=== PATIENT | male | born 1990 | race Caucasian/White ===

== ENCOUNTER 2018-12-19 14:15 | Emergency (ER) | payer BC, OTHER ==
[~2018-12-19] VITALS: Ht 180.3 cm; Wt 91.5 kg
[2018-12-19 14:33] VITALS: BP 143/98
--- NOTE | 2018-12-19 14:50 | NUR ---
Patient/Caregiver given discharge instructions and they have confirmed that they understand the instructions. Patient ambulatory with steady gait.
== END 2018-12-19 14:57 | disposition home or self-care (01) ==
LOC: ED 14:45
DX: B35.4 Tinea corporis (principal)
CPT/HCPCS: 99282

== ENCOUNTER 2020-01-01 17:00 | Emergency (ER) | payer OTHER, SELFPAY ==
[~2020-01-01] VITALS: Ht 177.8 cm; Wt 94.0 kg
--- NOTE | 2020-01-01 17:25 | NUR ---
PT TO ROOM 26 PER PEDIS. PT IS VERY NERVOUS AND C/O VARIOUS AILMENTS OVER A 1 MONTH TIME SPAN. AFTER MUCH DISCUSSION, PT IS HERE TO BE TESTED FOR THE WHITMAN VIRUS, HE IS AFRAID HE MIGHT GIVE IT TO SOMEONE. MD IN TO ASSESS PATIENT. ORDERS PLACED. COVID 19 TEST OBTAINED. PRODUCTION GRADER PERFORMED. XRAY AT BEDSIDE.
[2020-01-01 18:08] VITALS: BP 128/73
--- NOTE | 2020-01-01 18:10 | NUR ---
Patient/Caregiver given discharge instructions and they have confirmed that they understand the instructions. Patient ambulatory with steady gait.
== END 2020-01-01 18:10 | disposition home or self-care (01) ==
LOC: ED 18:00
DX: R06.00 Dyspnea, unspecified (principal); Z20.828 Contact with and (suspected) exposure to other viral communicable diseases; R05 Cough
CPT/HCPCS: 71045; 93005; 99285

== ENCOUNTER 2020-03-20 02:44 | Emergency (ER) | payer BC ==
[~2020-03-20] VITALS: Ht 180.3 cm; Wt 94.1 kg
[2020-03-20 02:53] VITALS: BP 137/91
--- NOTE | 2020-03-20 04:20 | NUR ---
Patient/Caregiver given discharge instructions and they have confirmed that they understand the instructions. Patient ambulatory with steady gait.
== END 2020-03-20 04:22 | disposition home or self-care (01) ==
LOC: ED 04:11
DX: R07.89 Other chest pain (principal)
CPT/HCPCS: 71045; 93005; 99283